=== PATIENT | male | born 1940 | race African-American/Black ===

== ENCOUNTER 2022-07-30 15:52 | Inpatient (IN) ==
[2022-07-30] MEDS ORDERED: FUROSEMIDE 40 MG/4 ML VIAL IV STA (17:45)
[2022-07-30 18:55] LABS: Basophils # 0.1 10*3/uL (0.0-0.2); Eosinophils # 0.1 10*3/uL (0.0-0.87); Eosinophils % 1.7 % (0.00-10.9); Hematocrit 39.7 VOL% (42.0-52.0); Hemoglobin 11.6 GM/DL (14.0-18.0); Immature Granulocytes % 0.5 %; Immature Granulocytes Absolute 0.03 #; Lymphocytes # 0.8 10*3/uL (1.4-4.0); Lymphocytes % 13.7 % (21.2-54.2); Mean Corpuscular HGB Conc 29.2 GM/DL (32-36); Mean Corpuscular Volume 89.4 FL (87-102); Mean Platelet Volume 9.9 FL (9.6-12.0); Monocytes # 0.4 10*3/uL (0.11-0.8); Monocytes % 6.5 % (1.7-12.7); Neutrophils % 76.6 % (38.7-73.9); Platelet Count 258 T/CUMM (130-400); Red Blood Count 4.44 MC/CUMM (3.8-5.5); Red Cell Distribution Width 19.3 % (9.3-17.3)
[2022-07-30 19:10] LABS: Albumin 2.9 G/DL (3.4-5.0); Bilirubin,Total 1.7 MG/DL (0.20-1.00); Calcium 8.6 MG/DL (8.5-10.1); Osmolality,Calculated 291.3 MOS/KG (273-304); Potassium 4.8 MMOL/L (3.5-5.1); Total Protein 7.6 G/DL (6.4-8.2)
[2022-07-30] MEDS ORDERED: APIXABAN 2.5 MG TABLET PO SCH (21:00)
[2022-07-30] MEDS ORDERED: ACETAMINOPHEN 325 MG TABLET PO PRN (21:39)
[2022-07-30] MEDS ORDERED: SIMETHICONE CHEW 125 MG TABLET PO PRN (21:39)
[2022-07-30] MEDS ORDERED: ALBUTEROL 2.5 MG/3 ML NEB RESP TX PRN (21:39)
[2022-07-30] MEDS ORDERED: ONDANSETRON 4 MG/2 ML VIAL IV PRN (21:39)
[2022-07-30] MEDS ORDERED: hydrALAZINE 20 MG/1 ML VIAL IV PRN (21:39)
[2022-07-30] MEDS ORDERED: MAGNESIUM SULF RIDER 2 GM/50 ML PREMIX IV PRN (21:59)
[2022-07-30] MEDS ORDERED: MAGNESIUM SULF RIDER 4 GM/100 ML PREMIX IV PRN (21:59)
[2022-07-30] MEDS ORDERED: APIXABAN 2.5 MG TABLET ONE (23:43)
[2022-07-30] MEDS: cefTRIAXone 1,000 MG in SODIUM CHLORIDE 0.9% 100 ML IV SCH (23:57)
[2022-07-31] MEDS: AZITHROMYCIN INJ 500 MG in SODIUM CHLORIDE 0.9% 250 ML IV SCH (00:25)
[2022-07-31 04:36] LABS: Arterial Base Excess iSTAT -1 MMOL/L (-2.5-2.5); Arterial Bicarbonate iSTAT 22.3 MMOL/L (20-26); Arterial O2 Saturation iSTAT 94 % (95-100); Arterial PCO2 iSTAT 33 MM HG (35-48); Arterial PO2 iSTAT 66 MM HG (80-95); Arterial Total CO2 iSTAT 23 MMO/L (23-27); Arterial pH iSTAT 7.438 (7.35-7.45)
[2022-07-31 07:12] LABS: Basophils # 0.1 10*3/uL (0.0-0.2); Basophils % 1.1 % (0.0-0.8); Eosinophils # 0.1 10*3/uL (0.0-0.87); Hematocrit 42.4 VOL% (42.0-52.0); Hemoglobin 12.9 GM/DL (14.0-18.0); Immature Granulocytes % 0.4 %; Immature Granulocytes Absolute 0.03 #; Lymphocytes # 0.8 10*3/uL (1.4-4.0); Lymphocytes % 10.7 % (21.2-54.2); Mean Corpuscular HGB Conc 30.4 GM/DL (32-36); Mean Corpuscular Volume 88.9 FL (87-102); Mean Platelet Volume 10.1 FL (9.6-12.0); Monocytes # 0.4 10*3/uL (0.11-0.8); Neutrophils % 81.8 % (38.7-73.9); Platelet Count 240 T/CUMM (130-400); Red Blood Count 4.77 MC/CUMM (3.8-5.5); Red Cell Distribution Width 19.9 % (9.3-17.3); White Blood Count 7.2 T/CUMM (4-12)
[2022-07-31 07:26] LABS: Calcium 8.6 MG/DL (8.5-10.1); Osmolality,Calculated 288.3 MOS/KG (273-304); Potassium 4.4 MMOL/L (3.5-5.1); Thyroid Stimulating Hormone 2.53 uIU/ml (0.358-3.74)
[2022-07-31] MEDS ORDERED: MAGNESIUM SULF RIDER 2 GM/50 ML PREMIX IV ONE (07:55)
[2022-07-31] MEDS: FERROUS SULFATE 325 MG TABLET PO SCH (08:32)
[2022-07-31] MEDS: METOPROLOL SUCCINATE XL 50 MG TABLET PO SCH (08:32)
[2022-07-31] MEDS: DIGOXIN 0.125 MG TABLET PO SCH (08:32)
[2022-07-31] MEDS: PANTOPRAZOLE 40 MG TABLET PO SCH (08:32)
[2022-07-31] MEDS: DOCUSATE SODIUM 100 MG CAPSULE PO SCH ×2 (08:33→21:42)
[2022-07-31] MEDS: guaiFENesin/DM ER 600-30 MG TABLET PO SCH ×2 (08:33→21:42)
[2022-07-31] MEDS: FUROSEMIDE 40 MG/4 ML VIAL IV SCH (08:35)
[2022-07-31] MEDS: ASPIRIN EC 81 MG TABLET PO SCH (11:19)
[2022-07-31] MEDS ORDERED: GLUCAGON 1 MG VIAL IM PRN (11:34)
[2022-07-31] MEDS ORDERED: DEXTROSE 10% 250 ML BAG IV PRN (11:36)
[2022-07-31] MEDS: ISOSORBIDE MONONITRATE 30 MG TABLET PO SCH (12:42)
[2022-07-31] MEDS: INSULIN REGULAR 100 UNIT/ML SUBCUT SCH ×3 (12:43→21:43)
[2022-07-31] MEDS: DOBUTamine 500 MG/250 ML PREMIX IV SCH (12:44)
[2022-07-31] MEDS: ENOXAPARIN 40 MG/0.4 ML SYRINGE SUBCUT SCH (21:42)
[2022-07-31] MEDS: ATORVASTATIN 40 MG TABLET PO SCH (21:42)
[2022-07-31] MEDS: cefTRIAXone 1,000 MG in SODIUM CHLORIDE 0.9% 100 ML IV SCH (23:45)
[2022-08-01] MEDS: AZITHROMYCIN INJ 500 MG in SODIUM CHLORIDE 0.9% 250 ML IV SCH ×2 (01:02→22:15)
[2022-08-01 05:50] LABS: Basophils # 0.1 10*3/uL (0.0-0.2); Basophils % 0.5 % (0.0-0.8); Eosinophils % 0.2 % (0.00-10.9); Hematocrit 35.1 VOL% (42.0-52.0); Hemoglobin 10.4 GM/DL (14.0-18.0); Immature Granulocytes % 0.7 %; Immature Granulocytes Absolute 0.06 #; Lymphocytes # 0.3 10*3/uL (1.4-4.0); Lymphocytes % 3.6 % (21.2-54.2); Mean Corpuscular HGB Conc 29.6 GM/DL (32-36); Mean Corpuscular Volume 87.1 FL (87-102); Mean Platelet Volume 9.7 FL (9.6-12.0); Monocytes # 0.5 10*3/uL (0.11-0.8); Monocytes % 5.7 % (1.7-12.7); Neutrophils % 89.3 % (38.7-73.9); Platelet Count 219 T/CUMM (130-400); Red Blood Count 4.03 MC/CUMM (3.8-5.5); Red Cell Distribution Width 19.6 % (9.3-17.3); White Blood Count 9.2 T/CUMM (4-12)
[2022-08-01 06:03] LABS: Calcium 8.2 MG/DL (8.5-10.1); Osmolality,Calculated 288.3 MOS/KG (273-304); Potassium 3.8 MMOL/L (3.5-5.1)
[2022-08-01 06:55] LABS: Total Cells Counted 100
[2022-08-01 06:56] LABS: Anisocytosis 1+; Platelet Estimate Normal; Poikilocytosis 1+; Schistocytes 1+
[2022-08-01 06:57] LABS: Acanthocytes Few; Ovalocytes 1+; Polychromasia Slight
[2022-08-01] MEDS: INSULIN REGULAR 100 UNIT/ML SUBCUT SCH ×4 (07:43→20:46)
[2022-08-01] MEDS ORDERED: MAGNESIUM SULF RIDER 2 GM/50 ML PREMIX IV ONE (08:16)
[2022-08-01] MEDS: FERROUS SULFATE 325 MG TABLET PO SCH (08:31)
[2022-08-01] MEDS: DIGOXIN 0.125 MG TABLET PO SCH (08:31)
[2022-08-01] MEDS: ASPIRIN EC 81 MG TABLET PO SCH (08:31)
[2022-08-01] MEDS: PANTOPRAZOLE 40 MG TABLET PO SCH (08:31)
[2022-08-01] MEDS: METOPROLOL SUCCINATE XL 50 MG TABLET PO SCH (08:31)
[2022-08-01] MEDS: ISOSORBIDE MONONITRATE 30 MG TABLET PO SCH (08:31)
[2022-08-01] MEDS: guaiFENesin/DM ER 600-30 MG TABLET PO SCH ×2 (08:31→20:46)
[2022-08-01] MEDS: DOCUSATE SODIUM 100 MG CAPSULE PO SCH ×2 (08:31→20:46)
[2022-08-01] MEDS: FUROSEMIDE 40 MG/4 ML VIAL IV SCH (08:36)
[2022-08-01] MEDS: DOBUTamine 500 MG/250 ML PREMIX IV SCH (08:38)
[2022-08-01] MEDS: hydrALAZINE 25 MG TABLET PO SCH ×3 (08:44→20:46)
[2022-08-01] MEDS: METOPROLOL SUCCINATE XL 25 MG TABLET PO SCH (09:01)
[2022-08-01] MEDS: ENOXAPARIN 40 MG/0.4 ML SYRINGE SUBCUT SCH (20:46)
[2022-08-01] MEDS: ATORVASTATIN 40 MG TABLET PO SCH (20:46)
[2022-08-01] MEDS: cefTRIAXone 1,000 MG in SODIUM CHLORIDE 0.9% 100 ML IV SCH (21:00)
[2022-08-02 04:30] LABS: Basophils % 0.4 % (0.0-0.8); Eosinophils # 0.1 10*3/uL (0.0-0.87); Eosinophils % 1.6 % (0.00-10.9); Hematocrit 33.1 VOL% (42.0-52.0); Immature Granulocytes % 0.9 %; Immature Granulocytes Absolute 0.07 #; Lymphocytes # 0.2 10*3/uL (1.4-4.0); Lymphocytes % 2.3 % (21.2-54.2); Mean Corpuscular HGB Conc 30.2 GM/DL (32-36); Mean Corpuscular Volume 87.1 FL (87-102); Mean Platelet Volume 9.5 FL (9.6-12.0); Monocytes # 0.7 10*3/uL (0.11-0.8); Neutrophils % 86.8 % (38.7-73.9); Platelet Count 215 T/CUMM (130-400); Red Cell Distribution Width 19.9 % (9.3-17.3); White Blood Count 8.1 T/CUMM (4-12)
[2022-08-02 04:43] LABS: Osmolality,Calculated 287.3 MOS/KG (273-304); Potassium 3.7 MMOL/L (3.5-5.1)
[2022-08-02] MEDS: DOBUTamine 500 MG/250 ML PREMIX IV SCH (05:20)
[2022-08-02 05:36] LABS: Hyaline Casts,Urine 12 /LPF (0-3); Mucus,Urine Occasional /LPF (Occasional); RBC,Urine 2 /HPF (0-4)
[2022-08-02 05:39] LABS: Urine Appearance Clear (Clear); Urine Color Amber (Yellow)
[2022-08-02 05:40] LABS: Bilirubin,Urine Small mg/dL (Negative); Blood, Urine Negative (Negative); Glucose,Urine (UA) Negative (Negative); Ketones,Urine Trace mg/dL (Negative); Nitrite,Urine Negative (Negative); Protein,Urine 30 mg/dL (Negative); Urine Specific Gravity 1.025 (1.001-1.035); Urine pH 5.5 (4.5-8.0)
[2022-08-02] MEDS: INSULIN REGULAR 100 UNIT/ML SUBCUT SCH ×4 (07:31→20:49)
[2022-08-02] MEDS: FUROSEMIDE 40 MG/4 ML VIAL IV SCH (09:00)
[2022-08-02] MEDS: guaiFENesin/DM ER 600-30 MG TABLET PO SCH ×2 (09:01→21:15)
[2022-08-02] MEDS: FERROUS SULFATE 325 MG TABLET PO SCH (09:01)
[2022-08-02] MEDS: METOPROLOL SUCCINATE XL 25 MG TABLET PO SCH (09:01)
[2022-08-02] MEDS: PANTOPRAZOLE 40 MG TABLET PO SCH (09:01)
[2022-08-02] MEDS: ASPIRIN EC 81 MG TABLET PO SCH (09:01)
[2022-08-02] MEDS: DIGOXIN 0.125 MG TABLET PO SCH (09:01)
[2022-08-02] MEDS: DOCUSATE SODIUM 100 MG CAPSULE PO SCH ×2 (09:01→21:15)
[2022-08-02] MEDS: ISOSORBIDE MONONITRATE 30 MG TABLET PO SCH (09:01)
[2022-08-02] MEDS: hydrALAZINE 25 MG TABLET PO SCH ×3 (09:09→20:48)
[2022-08-02] MEDS: ENOXAPARIN 40 MG/0.4 ML SYRINGE SUBCUT SCH (21:15)
[2022-08-02] MEDS: ATORVASTATIN 40 MG TABLET PO SCH (21:15)
[2022-08-02] MEDS: cefTRIAXone 1,000 MG in SODIUM CHLORIDE 0.9% 100 ML IV SCH (22:12)
[2022-08-02] MEDS: AZITHROMYCIN INJ 500 MG in SODIUM CHLORIDE 0.9% 250 ML IV SCH (23:26)
[2022-08-03 04:49] LABS: Basophils % 0.4 % (0.0-0.8); Eosinophils # 0.3 10*3/uL (0.0-0.87); Eosinophils % 3.6 % (0.00-10.9); Hematocrit 32.6 VOL% (42.0-52.0); Hemoglobin 9.8 GM/DL (14.0-18.0); Immature Granulocytes % 0.5 %; Immature Granulocytes Absolute 0.04 #; Lymphocytes # 0.4 10*3/uL (1.4-4.0); Lymphocytes % 4.7 % (21.2-54.2); Mean Corpuscular HGB Conc 30.1 GM/DL (32-36); Mean Corpuscular Volume 87.9 FL (87-102); Mean Platelet Volume 9.7 FL (9.6-12.0); Monocytes # 0.7 10*3/uL (0.11-0.8); Monocytes % 8.4 % (1.7-12.7); Neutrophils % 82.4 % (38.7-73.9); Platelet Count 205 T/CUMM (130-400); Red Blood Count 3.71 MC/CUMM (3.8-5.5); Red Cell Distribution Width 19.9 % (9.3-17.3); White Blood Count 7.8 T/CUMM (4-12)
[2022-08-03 05:10] LABS: Calcium 8.1 MG/DL (8.5-10.1); Osmolality,Calculated 283.5 MOS/KG (273-304); Potassium 3.7 MMOL/L (3.5-5.1)
[2022-08-03 05:31] LABS: Anisocytosis 2+; Eosinophils 3 % (0-10); Hypochromia 2+; Lymphocytes 5 % (20-55); Ovalocytes 2+; Poikilocytosis 1+; Total Cells Counted 100
[2022-08-03 05:32] LABS: Platelet Estimate Adequate
[2022-08-03] MEDS: INSULIN REGULAR 100 UNIT/ML SUBCUT SCH ×4 (08:03→21:42)
[2022-08-03] MEDS ORDERED: SODIUM CHLORIDE 0.65% NASAL SPRAY 45 ML BOTTLE BOTH NARES PRN (08:29)
[2022-08-03] MEDS ORDERED: diphenhydrAMINE 2% CREAM 28 GM TUBE TOP PRN (09:37)
[2022-08-03] MEDS: ASPIRIN EC 81 MG TABLET PO SCH (09:38)
[2022-08-03] MEDS: hydrALAZINE 25 MG TABLET PO SCH ×3 (09:39→21:42)
[2022-08-03] MEDS: METOPROLOL SUCCINATE XL 25 MG TABLET PO SCH (09:39)
[2022-08-03] MEDS: FERROUS SULFATE 325 MG TABLET PO SCH (09:40)
[2022-08-03] MEDS: guaiFENesin/DM ER 600-30 MG TABLET PO SCH ×2 (09:40→21:43)
[2022-08-03] MEDS: DOCUSATE SODIUM 100 MG CAPSULE PO SCH ×2 (09:41→21:42)
[2022-08-03] MEDS: DIGOXIN 0.125 MG TABLET PO SCH (09:41)
[2022-08-03] MEDS: PANTOPRAZOLE 40 MG TABLET PO SCH (09:42)
[2022-08-03] MEDS: ISOSORBIDE MONONITRATE 30 MG TABLET PO SCH (09:42)
[2022-08-03] MEDS: FUROSEMIDE 40 MG/4 ML VIAL IV SCH ×2 (09:45→16:18)
[2022-08-03] MEDS ORDERED: LACTULOSE 20 GM/30 ML UDCUP PO ONE (10:34)
[2022-08-03] MEDS: DOBUTamine 500 MG/250 ML PREMIX IV SCH (10:37)
[2022-08-03] MEDS: SPIRONOLACTONE 25 MG TABLET PO SCH (11:52)
[2022-08-03] MEDS ORDERED: POTASSIUM CHLORIDE 20 MEQ TABLET PO ONE (13:55)
[2022-08-03] MEDS: cefTRIAXone 1,000 MG in SODIUM CHLORIDE 0.9% 100 ML IV SCH (21:43)
[2022-08-03] MEDS: ATORVASTATIN 40 MG TABLET PO SCH (21:43)
[2022-08-03] MEDS: ENOXAPARIN 40 MG/0.4 ML SYRINGE SUBCUT SCH (21:43)
[2022-08-03] MEDS: AZITHROMYCIN INJ 500 MG in SODIUM CHLORIDE 0.9% 250 ML IV SCH (21:44)
[2022-08-04 04:35] LABS: Basophils % 0.4 % (0.0-0.8); Eosinophils # 0.3 10*3/uL (0.0-0.87); Eosinophils % 4.3 % (0.00-10.9); Hematocrit 33.9 VOL% (42.0-52.0); Hemoglobin 10.2 GM/DL (14.0-18.0); Immature Granulocytes % 0.4 %; Immature Granulocytes Absolute 0.03 #; Lymphocytes # 0.4 10*3/uL (1.4-4.0); Lymphocytes % 5.6 % (21.2-54.2); Mean Corpuscular HGB Conc 30.1 GM/DL (32-36); Mean Corpuscular Volume 86.7 FL (87-102); Mean Platelet Volume 9.6 FL (9.6-12.0); Monocytes # 0.7 10*3/uL (0.11-0.8); Monocytes % 9.4 % (1.7-12.7); Neutrophils % 79.9 % (38.7-73.9); Platelet Count 220 T/CUMM (130-400); Red Blood Count 3.91 MC/CUMM (3.8-5.5); Red Cell Distribution Width 20.5 % (9.3-17.3); White Blood Count 7.7 T/CUMM (4-12)
[2022-08-04 04:59] LABS: Osmolality,Calculated 283.4 MOS/KG (273-304); Potassium 3.7 MMOL/L (3.5-5.1)
[2022-08-04] MEDS: guaiFENesin/DM ER 600-30 MG TABLET PO SCH ×2 (08:47→22:30)
[2022-08-04] MEDS: ASPIRIN EC 81 MG TABLET PO SCH (08:47)
[2022-08-04] MEDS: FERROUS SULFATE 325 MG TABLET PO SCH (08:48)
[2022-08-04] MEDS: DIGOXIN 0.125 MG TABLET PO SCH (08:48)
[2022-08-04] MEDS: hydrALAZINE 25 MG TABLET PO SCH ×3 (08:48→22:29)
[2022-08-04] MEDS: DOCUSATE SODIUM 100 MG CAPSULE PO SCH ×2 (08:49→22:30)
[2022-08-04] MEDS: ISOSORBIDE MONONITRATE 30 MG TABLET PO SCH (08:49)
[2022-08-04] MEDS: SPIRONOLACTONE 25 MG TABLET PO SCH (08:49)
[2022-08-04] MEDS: PANTOPRAZOLE 40 MG TABLET PO SCH (08:49)
[2022-08-04] MEDS: METOPROLOL SUCCINATE XL 25 MG TABLET PO SCH (08:49)
[2022-08-04] MEDS: FUROSEMIDE 40 MG/4 ML VIAL IV SCH ×2 (08:49→16:17)
[2022-08-04] MEDS: INSULIN REGULAR 100 UNIT/ML SUBCUT SCH ×4 (08:56→22:30)
[2022-08-04] MEDS ORDERED: BISACODYL 5 MG TABLET PO ONE (12:51)
[2022-08-04] MEDS ORDERED: MAGNESIUM SULF RIDER 2 GM/50 ML PREMIX IV ONE (12:53)
[2022-08-04] MEDS: MAGNESIUM OXIDE 400 MG TABLET PO SCH (22:30)
[2022-08-04] MEDS: ENOXAPARIN 40 MG/0.4 ML SYRINGE SUBCUT SCH (22:30)
[2022-08-04] MEDS: ASCORBIC ACID 500 MG TABLET PO SCH (22:30)
[2022-08-04] MEDS: ATORVASTATIN 40 MG TABLET PO SCH (22:30)
[2022-08-04] MEDS: cefTRIAXone 1,000 MG in SODIUM CHLORIDE 0.9% 100 ML IV SCH (22:31)
[2022-08-04] MEDS: AZITHROMYCIN INJ 500 MG in SODIUM CHLORIDE 0.9% 250 ML IV SCH (23:43)
[2022-08-05 04:34] LABS: Basophils % 0.6 % (0.0-0.8); Eosinophils # 0.4 10*3/uL (0.0-0.87); Hematocrit 36.3 VOL% (42.0-52.0); Immature Granulocytes % 0.7 %; Immature Granulocytes Absolute 0.05 #; Lymphocytes # 0.6 10*3/uL (1.4-4.0); Lymphocytes % 9.2 % (21.2-54.2); Mean Corpuscular HGB Conc 30.3 GM/DL (32-36); Mean Corpuscular Volume 85.2 FL (87-102); Mean Platelet Volume 8.7 FL (9.6-12.0); Monocytes # 0.6 10*3/uL (0.11-0.8); Monocytes % 8.2 % (1.7-12.7); Neutrophils % 75.3 % (38.7-73.9); Platelet Count 207 T/CUMM (130-400); Red Blood Count 4.26 MC/CUMM (3.8-5.5); Red Cell Distribution Width 20.6 % (9.3-17.3)
[2022-08-05 05:02] LABS: Osmolality,Calculated 275.8 MOS/KG (273-304); Potassium 3.6 MMOL/L (3.5-5.1)
[2022-08-05] MEDS: INSULIN REGULAR 100 UNIT/ML SUBCUT SCH ×2 (07:46→12:07)
[2022-08-05] MEDS: guaiFENesin/DM ER 600-30 MG TABLET PO SCH (08:43)
[2022-08-05] MEDS: SPIRONOLACTONE 25 MG TABLET PO SCH (08:44)
[2022-08-05] MEDS: DIGOXIN 0.125 MG TABLET PO SCH (08:44)
[2022-08-05] MEDS: METOPROLOL SUCCINATE XL 25 MG TABLET PO SCH (08:44)
[2022-08-05] MEDS: PANTOPRAZOLE 40 MG TABLET PO SCH (08:44)
[2022-08-05] MEDS: DOCUSATE SODIUM 100 MG CAPSULE PO SCH (08:44)
[2022-08-05] MEDS: ASCORBIC ACID 500 MG TABLET PO SCH (08:44)
[2022-08-05] MEDS: FERROUS SULFATE 325 MG TABLET PO SCH (08:44)
[2022-08-05] MEDS: hydrALAZINE 25 MG TABLET PO SCH (08:44)
[2022-08-05] MEDS: ISOSORBIDE MONONITRATE 30 MG TABLET PO SCH (08:44)
[2022-08-05] MEDS: MAGNESIUM OXIDE 400 MG TABLET PO SCH (08:44)
[2022-08-05] MEDS: FUROSEMIDE 40 MG/4 ML VIAL IV SCH (08:45)
[2022-08-05] MEDS: ASPIRIN EC 81 MG TABLET PO SCH (08:53)
[2022-08-05 12:28] VITALS: BP 149/75
== END 2022-08-05 15:43 | disposition home health service (06) | DRG 291 ==
LOC: EDBD → EDUNIT# → N.ED 15:52 → SUATTDRO 21:56 → N.EDINP 21:56 → N.TELEN 23:42
PROVIDERS: ADMIT Internal Medicine; ATTEND Internal Medicine Geriatric Medicine